=== PATIENT | male | born 1980 | race Caucasian/White ===

== ENCOUNTER 2021-06-10 19:13 | Emergency (ER) | payer OTHER ==
[~2021-06-10] VITALS: Ht 175.3 cm; Wt 85.0 kg
--- NOTE | ~2021-06-10 | EKG ---
[facility] [address] [place], [place] [address] Draft EKG completed, results pending confirmation PATIENT NAME: LUIZJOSELYN WAGNER Electrocardiogram DATE OF : 78 PHYSICIAN: PRELIMINARY REPORT #: [id number] REPORT IS CONFIDENTIAL AND NOT TO BE RELEASED WITHOUT AUTHORIZATION
[2021-06-10] MEDS ORDERED: TRIHEXYPHENIDYL2 MG PO (20:39)
[2021-06-10] MEDS ORDERED: OLANZAPINE10 MG PO (20:39)
[2021-06-10] MEDS ORDERED: ARIPIPRAZOLE15 MG PO (20:40)
== END 2021-06-11 09:26 ==
LOC: ED 19:13
DX: R45.851 Suicidal ideations (principal); Z88.2 Allergy status to sulfonamides; Z79.899 Other long term (current) drug therapy
CPT/HCPCS: 70450; 80048; 81001; 84443; 85025; 93005; 93010; 99285-25; C9803; G0480; U0003

== ENCOUNTER 2022-08-04 16:33 | Emergency (ER) | payer OTHER ==
[~2022-08-04] VITALS: Ht 175.3 cm; Wt 84.8 kg
[~2022-08-04 16:33] MED LIST: ARIPIPRAZOLE15 MG PO; OLANZAPINE10 MG PO; TRIHEXYPHENIDYL2 MG PO
== END 2022-08-04 18:10 | disposition home or self-care (01) ==
LOC: ED 16:33
DX: F25.9 Schizoaffective disorder, unspecified (principal); E78.00 Pure hypercholesterolemia, unspecified; Z88.2 Allergy status to sulfonamides; Z88.1 Allergy status to other antibiotic agents; Z79.899 Other long term (current) drug therapy
CPT/HCPCS: 36415; 80053; 85025; 99285; G0480